=== PATIENT | female | born 1965 | race Caucasian/White ===

== ENCOUNTER → 2017-11-16 11:58 | Outpatient (CLI) | payer OTHER, SELFPAY ==
--- NOTE | 2017-11-16 16:14 | NEURO ---
NCS and/or EMG Patient Report Ordering Doctor: Philip Bell DATE OF SERVICE: 11/16/17 Teetee Lewis is a 52-year-old female presents for electrodiagnostic testing of the left lower limb. She reports pain in the left thigh radiating down the leg. She reports intermittent back spasms. Electrodiagnostic findings: Left peroneal motor nerve demonstrates normal distal latency, amplitude and conduction velocity. Normal left tibial motor response. Normal tibial and peroneal F waves. Normal H reflex bilaterally. Normal sensory responses are noted. On needle EMG, all muscles tested in the left lower limb, as well as lumbar paraspinals, showed no evidence of denervation with normal motor unit action potentials. Electrodiagnostic impression: This is a normal electrodiagnostic study of the left lower limb. There is no electrodiagnostic evidence for peripheral neuropathy or lumbosacral radiculopathy. If there are any further questions, please do not hesitate to contact me.
== END ==
PROVIDERS: Family Provider Physician Assistant; PCP Physician Assistant; Visit Provider Internal Medicine Rheumatology
DX: M15.0 Primary generalized (osteo)arthritis (principal)
CPT/HCPCS: 95886; 95910

== ENCOUNTER → 2017-12-19 13:14 | Outpatient (CLI) | payer OTHER, SELFPAY ==
--- NOTE | 2017-12-19 13:29 | MRI_ITS ---
STUDY: MRI LUMBAR SPINE WITHOUT CONTRAST REASON FOR EXAM: Female, 52 years old. Low back pain and right-sided spasms. Pain radiates to lower extremities. TECHNIQUE: Standardized fat and water weighted pulse sequences were obtained in the sagittal and axial planes. COMPARISON: None FINDINGS: T11-T12: (Sagittal only). Normal endplates. Normal disc height, hydration and morphology. Normal central canal and bilateral intervertebral neural foramina. T12-L1: (Sagittal only). Normal endplates. Normal disc height, hydration and morphology. Normal central canal and bilateral intervertebral neural foramina. Normal lumbar lordosis. There is no substantial scoliosis. Normal conus medullaris that terminates at the lower L1 vertebral body level. L1-2: Normal endplates. Normal disc height, hydration and morphology. Normal bilateral facet joints. Normal central canal and bilateral lateral recesses. Normal bilateral intervertebral neural foramina. Left renal cyst is visible at this level. L2-3: Normal endplates. Normal disc height, hydration and morphology. Normal bilateral facet joints. Normal central canal and bilateral lateral recesses. Normal bilateral intervertebral neural foramina. L3-4: Normal endplates. Normal disc height, hydration and morphology. Normal bilateral facet joints. Normal central canal and bilateral lateral recesses. Normal bilateral intervertebral neural foramina. L4-5: Normal endplates. Normal disc height, hydration and morphology. Normal bilateral facet joints. Normal central canal and bilateral lateral recesses. Normal bilateral intervertebral neural foramina. L5-S1: Normal endplates. Normal disc height, hydration and morphology. Normal central canal and bilateral lateral recesses. Moderate asymmetric degenerative facet arthropathy. Normal bilateral intervertebral neural foramina. Normal visualized sacral ala. Normal visualized paraspinous soft tissue structures. MRI/Spine Lumbar (Routine) IMPRESSION: 1. Moderate asymmetric L4-L5 degenerative facet arthropathy. 2. No MRI evidence of lumbar extruded disc fragment, spinal stenosis or nerve root displacement. Electronically Signed: Jonathan Salmon MD at 15:46 EDT , Service support ,
--- NOTE | 2017-12-19 13:41 | RAD_ITS ---
STUDY: X-RAY - ORBITS REASON FOR EXAM: Female, 52 years old. This study is being performed as a clearance examination for exclusion of orbital metal, prior to the performance of an MRI examination. TECHNIQUE: 2 view(s) of the orbits were obtained. COMPARISON: None. FINDINGS: Normal bilateral orbits without a metallic orbital foreign body. Normal visualized facial bones. Normal paranasal sinuses. The soft tissue structures are unremarkable. RAD/Orbits for Foreign Body IMPRESSION: No demonstrated metallic orbital foreign body. The patient is cleared for an MRI examination. Electronically Signed: Juan Cartwright MD at 13:54 EDT , Service support ,
== END ==
PROVIDERS: Family Provider Family Medicine; PCP Family Medicine; Visit Provider Internal Medicine Rheumatology
DX: M15.0 Primary generalized (osteo)arthritis (principal); M46.96 Unspecified inflammatory spondylopathy, lumbar region
CPT/HCPCS: 70030; 72148

== ENCOUNTER → 2020-06-09 | Outpatient (CLI) | payer OTHER, SELFPAY ==
--- NOTE | 2020-06-09 | IMM_PTH ---
PATIENT: JEN MASTERSON LOC: [facility] U#:[id number] AGE/SX: 55/F ROOM: RE06/09/[address]: Dr. Keo Walls MD : 1965 BED: DIS: 06/09/2020 SPEC #: [id number] RECD: 06/11/20 15:25 STATUS: VICKIE REQ #: [id number] GARETH: 06/09/20 00:[address]: Keo Walls DEPT: IMMUNOHISTOCHEMISTRY RECD BY: Kori Johnson ENTERED: 06/11/20 15:25 SP TYPE: IMMUNO OTHR DR: Dr. Joe Mcgregor MD Tissues: Uterine cervix, NOS Procedures: p16 (initial) KI-67 (add) PHYSICIAN & INSTITUTION [place] [id number] SPECIMEN INFORMATION: Tissue Source: Cervix at 6 and 12 o'clock Clinical Info: ASCUS Specimen Number: [id number] CPT code: 51270, 68410 METHODOLOGY: Deparaffinized sections of prefer/formalin-fixed tissue or PAP/DQ stained slides are incubated with monoclonal/polyclonal antibodies/oligonucleotide probes. Localization is made via biotin free immunoperoxidase method. Appropriate controls are performed and reacted as expected. Results on target cell population are indicated in the following table: RESULTS: ANTIBODY / CLONE RESULT P16 (E6H4) negative Ki-67 (30-9) negative These tests were developed and their performance characteristics determined by [facility]. They may not have been cleared or approved by the U.[place]. Food and Drug Administration. The FDA has determined that such clearance or approval is not necessary. The above immunohistochemical/dualISH markers are ordered and reviewed by the Pathologist. INTERPRETATION: Cervix at 6 and 12 o'clock, biopsy: Focal minimal changes suspicious for HPV cytopathic effects. SJ:dayanna 06/12/20
--- NOTE | 2020-06-09 14:20 | CER_PTH ---
PATIENT: JEN MASTERSON [facility] U#:[id number] AGE/SX: 55/F ROOM: RE06/09/[address]: Dr. Keo Walls MD : 1965 BED: DIS: 06/09/2020 SPEC #: [id number] RECD: 06/09/20 16:00 STATUS: VICKIE [place] #: [id number] GARETH: 06/09/20 14:[address]: Keo Walls DEPT: SURGICAL PATHOLOGY RECD BY: Shivani Laguerre ENTERED: 06/10/20 12:56 SP TYPE: CERV OTHR DR: Dr. Joe Mcgregor MD Tissues: Uterine cervix, NOS Procedures: Surgery Specimen Level IV HEADER OPERATION: Colposcopy PRE-OP DIAGNOSIS: ASCUS TISSUE SUBMITTED: 6 and 12 o'clock position MICROSCOPIC DIAGNOSIS Cervix, 6 and 12 o'clock position, biopsy: Focal minimal changes suspicious for HPV cytopathic effects. See comment. SAMANTHA:dayanna 06/11/20 COMMENT Immunohistochemistry ([id number]) for surrogate HPV marker (p16) is being performed and results will be reported separately.. The specimen predominantly consists of squamous mucosa. Transitional zone mucosa is not seen. Case has been reviewed in consultation with Dr. Miller who concurs with the above diagnosis. IDC:AM MICROSCOPIC DESCRIPTION Slides are reviewed. GROSS DESCRIPTION Received is one container labeled with the patient's name and not further designated. The specimen consists of multiple irregular fragments of higgins soft tissue that in aggregate measure 1.5 x 0.5 x 0.1 cm. The specimen is totally submitted in one cassette. / SAMANTHA:dayanna 06/10/20 TC:4 CPT: 86845
== END | disposition home or self-care (01) ==
LOC: LABSPEC 16:37
PROVIDERS: PCP Family Medicine; Visit Provider Obstetrics & Gynecology
DX: R87.611 Atypical squamous cells cannot exclude high grade squamous intraepithelial lesion on cytologic smear of cervix (ASC-H) (principal)
CPT/HCPCS: 88305; 88341; 88342

== ENCOUNTER → 2021-01-23 15:56 | Outpatient (CLI) | payer OTHER, SELFPAY ==
--- NOTE | 2021-01-23 15:59 | RAD_ITS ---
STUDY: X-RAY CHEST REASON FOR EXAM: Female, 55 years old. PREOP -- CC PCP TECHNIQUE: PA and lateral views of the chest. COMPARISON: None. FINDINGS: The lungs are clear and expanded. There is no demonstrated pleural abnormality. Normal size heart. Normal mediastinum and dolly. Normal visualized pulmonary arteries. Normal visualized aortic arch and descending thoracic aorta. Normal visualized thoracic spine. Normal visualized ribs, clavicles, and shoulders. There is no demonstrated abnormality of the visualized soft tissue structures of the upper abdomen. RAD/Chest PA and Lateral IMPRESSION: Normal x-ray examination of the chest. Electronically Signed: Jonathan Crowe MD at 6:41 EDT Tel , Service support ,
== END ==
PROVIDERS: PCP Family Medicine; Referring Provider Physician Assistant; Visit Provider Physician Assistant
DX: Z01.818 Encounter for other preprocedural examination (principal); Z01.810 Encounter for preprocedural cardiovascular examination; Z01.811 Encounter for preprocedural respiratory examination
CPT/HCPCS: 71046